=== PATIENT | male | born 1975 | race Caucasian/White ===

== ENCOUNTER 2022-03-15 10:39 | Day surgery (SDC) | payer OTHER ==
[~2022-03-15] VITALS: Ht 165.1 cm; Wt 77.2 kg
[2022-03-15 11:31] VITALS: BP 130/88; PULSE 80; TEMP 98.1
[2022-03-15 13:59] VITALS: BP 96/62; PULSE 61; TEMP 97.6
--- NOTE | 2022-03-15 13:59 | NUR ---
PATIENT DROWSY, AROUSES EASILY TO VERBAL STIMULI. FAMILIARIZED WITH SURROUNDINGS. RESP CLEAR. PATIENT DENIES PAIN. INCISION TO MID UPPER BACK INTACT. NO DRAINAGE OBSERVED. DENIES PAIN.
[2022-03-15 14:14] VITALS: BP 98/68; PULSE 64
[2022-03-15 14:29] VITALS: BP 112/77; PULSE 64
--- NOTE | 2022-03-15 14:29 | NUR ---
AWAKE, ALERT. IN ROOM. PATIENT DENIES EDWARD. DENIES NAUSEA. TOLERATES PO MUFFIN AND WATER WITHOUT NAUSEA.
[2022-03-15] MEDS ORDERED: MOTRIN 600600 MG/TAB PO (14:39)
[2022-03-15] MEDS ORDERED: NORCO 325 MG-51 TAB PO (14:39)
[2022-03-15 14:44] VITALS: BP 103/52; PULSE 60
[2022-03-15 14:59] VITALS: BP 113/77; PULSE 60
--- NOTE | 2022-03-15 15:00 | NUR ---
DISCHARGE INSTRUCTIONS REVIEWED WITH PATIENT AND . COPY OF INSTRUCTIONS AND EDUCATIONAL MATERIALS PROVIDED TO PATIENT.
== END 2022-03-15 15:10 | disposition home or self-care (01) ==
LOC: SDCO 10:39
DX: D17.1 Benign lipomatous neoplasm of skin and subcutaneous tissue of trunk (principal)
CPT/HCPCS: J0690; J2704; J3010; J7120